=== PATIENT | female | born 1940 | race Caucasian/White ===

== ENCOUNTER 2018-02-11 14:13 | Inpatient (IN) | payer MEDICARE, OTHER ==
[~2018-02-11] VITALS: Ht 157.5 cm; Wt 95.8 kg
[~2018-02-11 14:13] MED LIST: ALLOPURINOL100 MG PO; AMIODARONE HCL200 MG PO; B12 5,000 MCG1 EACH PO; BENICAR40 MG PO; BUTALBITAL COM1 EACH PO; CLONIDINE HCL0.2 MG PO; EVISTA60 MG PO; FUROSEMIDE40 MG PO; GABAPENTIN100 MG; GLUCAGON EMERGEN1 MG IM; HUMALIN N SQ; HUMALOG PEN SQ; HUMALOG100 UNITS/ INJ; HYDRALAZINE HCL25 MG PO; LANTUS 3ML100 UNITS/ INJ; LANTUS 3ML100 UNITS/ SQ; LIPITOR20 MG PO; METOPROLOL SUCC25 MG PO; NORCO 5-325 TA1 EACH PO; OCUVITE TABLET1 EAC1 PO; POTASSIUM CHLO20 ME1 PO; PROMETHAZINE12.5 M1 PO; SODIUM BICARBO650 MG PO; SYNTHROID75 MCG PO; TORSEMIDE20 MG PO; TYLENOL ARTHRITIS PO; VICTOZA 2-0.6 MG/0.1 INJ; VITAMIN D33000 UNIT PO; VITAMIN D35000 UNIT PO; VITAMIN D400 UNI1 PO; VITAMIN K100 MCG PO; WARFARIN SODIU2.5 MG PO; WARFARIN SODIUM4 MG PO; ZYRTEC10 MG PO
[2018-02-11 16:05] VITALS: BP 166/96
[2018-02-11 16:44] VITALS: BP 166/96
[2018-02-11 16:52] LABS: BASOPHILS # (AUTO) 0.1 (0.0-0.1); BASOPHILS % 0.6 % (0.0-1.0); EOSINOPHILS # (AUTO) 0.1 (0.0-0.4); EOSINOPHILS % 0.9 % (0.0-6.0); HEMATOCRIT 31.1 % (34.2-44.1); HEMOGLOBIN 10.3 g/dL (12.0-16.0); LYMPHOCYTES % 15.7 % (18.0-39.1); MEAN CORPUSCULAR HEMOGLOBIN 30.7 pg (28-32); MEAN CORPUSCULAR HGB CONC 33.1 g/dL (31-35); MEAN CORPUSCULAR VOLUME 92.8 fL (81-99); MONOCYTES # (AUTO) 0.9 (0.2-0.8); MONOCYTES % 7.3 % (4.4-11.3); NEUTROPHILS # (AUTO) 8.6 (2.1-6.9); PLATELET COUNT 397 x10e3/uL (140-360); RED BLOOD COUNT 3.35 x10e6/uL (3.6-5.1)
[2018-02-11 17:04] LABS: INR 3.91
[2018-02-11] MEDS: HYDROCODONE/APAP 5MG-325MG TAB PO PRN (17:05)
[2018-02-11 17:13] LABS: ALBUMIN 2.5 g/dL (3.5-5.0); ALBUMIN/GLOBULIN RATIO 0.5 (0.8-2.0); ANION GAP 14.8 mmol/L (8-16); CALCIUM 10.1 mg/dL (8.4-10.2); CREATININE, SERUM 1.58 mg/dL (0.57-1.11); POTASSIUM 4.8 mmol/L (3.5-5.1)
[2018-02-11 18:19] LABS: HYPOCHROMASIA SLIGHT; LYMPHOCYTES % (MANUAL) 22 % (19-48); MONOCYTES % (MANUAL) 9 % (3.4-9.0); NEUTROPHILS % (MANUAL) 63 % (40-74); PLATELET ESTIMATE SLIGHTLY INCREASED; PLATELET MORPHOLOGY COMMENT FEW LARGE; RBC MORPHOLOGY COMMENT NORMAL
[2018-02-11] MEDS: SODIUM CHLORIDE 0.9% 1000ML 1,000 ML IV SCH (18:45)
[2018-02-11] MEDS: CEFTRIAXONE SOD 1 GM VIAL IV SCH (18:46)
[2018-02-11 20:00] VITALS: BP 162/69
[2018-02-11 20:55] VITALS: BP 162/69
[2018-02-12] VITALS (7 sets, daily range): BP systolic 155–177; BP diastolic 66–78
[2018-02-12] MEDS: LEVOTHYROXINE SODIUM 75 MCG TAB PO SCH (06:00)
[2018-02-12 06:08] LABS: BASOPHILS # (AUTO) 0.1 (0.0-0.1); BASOPHILS % 0.7 % (0.0-1.0); EOSINOPHILS # (AUTO) 0.1 (0.0-0.4); EOSINOPHILS % 1.2 % (0.0-6.0); HEMATOCRIT 30.2 % (34.2-44.1); HEMOGLOBIN 9.7 g/dL (12.0-16.0); LYMPHOCYTES # (AUTO) 2.1 (1.0-3.2); LYMPHOCYTES % 19.7 % (18.0-39.1); MEAN CORPUSCULAR HEMOGLOBIN 30.1 pg (28-32); MEAN CORPUSCULAR HGB CONC 32.1 g/dL (31-35); MEAN CORPUSCULAR VOLUME 93.8 fL (81-99); MONOCYTES # (AUTO) 0.8 (0.2-0.8); MONOCYTES % 7.7 % (4.4-11.3); NEUTROPHILS # (AUTO) 6.9 (2.1-6.9); NEUTROPHILS % 63.8 % (38.7-80.0); PLATELET COUNT 365 x10e3/uL (140-360); RED BLOOD COUNT 3.22 x10e6/uL (3.6-5.1); RED CELL DISTRIBUTION WIDTH 15.1 % (11.7-14.4)
[2018-02-12 06:24] LABS: CLARITY,URINE CLEAR (CLEAR); COLOR,URINE YELLOW (YELLOW); LEUKOCYTE ESTERASE ,URINE 1+ (NEGATIVE)
[2018-02-12 06:24] LABS: INR 4.16; PROTHROMBIN TIME 37.8 seconds (11.9-14.5)
[2018-02-12 06:25] LABS: BILIRUBIN,URINE NEGATIVE (NEGATIVE); KETONES,URINE NEGATIVE (NEGATIVE); NITRITE,URINE NEGATIVE (NEGATIVE); PROTEIN,URINE DIPSTICK 1+ (NEGATIVE); URINE UROBILINOGEN 0.2 mg/dL (0.2 - 1)
[2018-02-12 06:31] LABS: ANION GAP 12.7 mmol/L (8-16); CALCIUM 9.6 mg/dL (8.4-10.2); CREATININE, SERUM 1.49 mg/dL (0.57-1.11); POTASSIUM 4.7 mmol/L (3.5-5.1)
[2018-02-12 06:49] LABS: BACTERIA,URINE FEW /HPF; EPITHELIAL CELLS,URINE MANY /LPF; RBC,URINE 0-5 /HPF (0-5); TRANSITIONAL EPI CELLS,URINE MODERATE; WBC,URINE (MAN) >50 /HPF (0-5)
[2018-02-12] MEDS: INSULIN LISPRO 100 UNIT/1 ML 3ML VIAL SQ SCH ×3 (07:30→17:09)
[2018-02-12] MEDS ORDERED: ATORVASTATIN 20 MG TAB PO SCH (09:00)
[2018-02-12] MEDS: TORSEMIDE 10 MG TAB PO SCH ×2 (09:00→09:26)
[2018-02-12] MEDS: OLMESARTAN 20 MG TAB PO SCH (09:25)
[2018-02-12] MEDS: HYDRALAZINE HCL 25 MG TAB PO SCH ×2 (09:25→17:02)
[2018-02-12] MEDS: METOPROLOL TARTRATE 50 MG TAB PO SCH ×2 (09:26→17:02)
[2018-02-12] MEDS: ALLOPURINOL 100 MG TAB PO SCH (09:26)
[2018-02-12] MEDS: ISOSORBIDE MONONITRATE 30 MG TAB CR PO SCH ×2 (09:26→17:02)
[2018-02-12] MEDS: DULOXETINE HCL 30 MG DELAYED RELEASE PO SCH ×2 (09:26→17:02)
[2018-02-12] MEDS: POTASSIUM CHLORIDE 20 MEQ TAB CR PO SCH (09:27)
[2018-02-12] MEDS: CLINDAMYCIN 600MG/D5W 50ML 50 ML IV SCH ×2 (10:10→17:02)
[2018-02-12] MEDS: SODIUM CHLORIDE 0.9% 1000ML 1,000 ML IV SCH (12:31)
[2018-02-12] MEDS: RALOXIFENE HCL 60 MG TAB PO SCH (12:31)
[2018-02-12] MEDS: CEFTRIAXONE SOD 1 GM VIAL IV SCH (16:06)
[2018-02-12] MEDS: HYDROCODONE/APAP 5MG-325MG TAB PO PRN (16:06)
[2018-02-12] MEDS: INSULIN DETEMIR 100 UNIT/ML PEN SQ SCH ×2 (20:07→20:26)
[2018-02-13] VITALS (8 sets, daily range): BP systolic 137–194; BP diastolic 65–89
[2018-02-13] MEDS: CLINDAMYCIN 600MG/D5W 50ML 50 ML IV SCH ×3 (00:58→16:59)
[2018-02-13] MEDS: HYDROCODONE/APAP 5MG-325MG TAB PO PRN ×3 (00:59→20:39)
[2018-02-13 05:27] LABS: BASOPHILS # (AUTO) 0.1 (0.0-0.1); BASOPHILS % 0.9 % (0.0-1.0); EOSINOPHILS # (AUTO) 0.2 (0.0-0.4); EOSINOPHILS % 1.9 % (0.0-6.0); HEMATOCRIT 27.5 % (34.2-44.1); HEMOGLOBIN 8.9 g/dL (12.0-16.0); LYMPHOCYTES # (AUTO) 2.4 (1.0-3.2); LYMPHOCYTES % 27.1 % (18.0-39.1); MEAN CORPUSCULAR HEMOGLOBIN 30.6 pg (28-32); MEAN CORPUSCULAR HGB CONC 32.4 g/dL (31-35); MEAN CORPUSCULAR VOLUME 94.5 fL (81-99); MONOCYTES # (AUTO) 0.9 (0.2-0.8); MONOCYTES % 9.7 % (4.4-11.3); NEUTROPHILS # (AUTO) 4.7 (2.1-6.9); PLATELET COUNT 329 x10e3/uL (140-360); RED BLOOD COUNT 2.91 x10e6/uL (3.6-5.1); RED CELL DISTRIBUTION WIDTH 15.2 % (11.7-14.4)
[2018-02-13] MEDS: LEVOTHYROXINE SODIUM 75 MCG TAB PO SCH (05:27)
[2018-02-13 05:53] LABS: ANION GAP 12.6 mmol/L (8-16); CALCIUM 9.4 mg/dL (8.4-10.2); CREATININE, SERUM 1.35 mg/dL (0.57-1.11); POTASSIUM 4.6 mmol/L (3.5-5.1)
[2018-02-13] MEDS: INSULIN LISPRO 100 UNIT/1 ML 3ML VIAL SQ SCH ×3 (07:30→16:22)
[2018-02-13 07:49] LABS: ANISOCYTOSIS SLIGHT; BAND NEUTROPHILS % (MANUAL) 1 %; EOSINOPHILS % (MANUAL) 1 % (0-7); HYPOCHROMASIA SLIGHT; LYMPHOCYTES % (MANUAL) 29 % (19-48); METAMYELOCYTES % (MANUAL) 1 % (0-0); MONOCYTES % (MANUAL) 7 % (3.4-9.0); MYELOCYTES % (MANUAL) 2 % (0-0); NEUTROPHILS % (MANUAL) 55 % (40-74); RBC MORPHOLOGY COMMENT NORMAL
[2018-02-13 07:50] LABS: PLATELET ESTIMATE ADEQUATE; PLATELET MORPHOLOGY COMMENT NORMAL
[2018-02-13] MEDS: HYDRALAZINE HCL 25 MG TAB PO SCH ×2 (08:40→17:00)
[2018-02-13] MEDS: SODIUM CHLORIDE 0.9% 1000ML 1,000 ML IV SCH (08:40)
[2018-02-13] MEDS: ALLOPURINOL 100 MG TAB PO SCH (08:41)
[2018-02-13] MEDS: METOPROLOL TARTRATE 50 MG TAB PO SCH ×2 (08:41→17:00)
[2018-02-13] MEDS: ISOSORBIDE MONONITRATE 30 MG TAB CR PO SCH ×2 (08:41→17:00)
[2018-02-13] MEDS: OLMESARTAN 20 MG TAB PO SCH (08:41)
[2018-02-13] MEDS: TORSEMIDE 10 MG TAB PO SCH (08:41)
[2018-02-13] MEDS: DULOXETINE HCL 30 MG DELAYED RELEASE PO SCH ×2 (08:41→17:00)
[2018-02-13] MEDS: RALOXIFENE HCL 60 MG TAB PO SCH (08:41)
[2018-02-13] MEDS: POTASSIUM CHLORIDE 20 MEQ TAB CR PO SCH (08:42)
[2018-02-13] MEDS ORDERED: SODIUM CHLORIDE FLUSH 10 ML SYR INJ PRN (10:00)
[2018-02-13] MEDS: CEFTRIAXONE SOD 1 GM VIAL IV SCH (16:20)
[2018-02-13] MEDS: INSULIN DETEMIR 100 UNIT/ML PEN SQ SCH (20:31)
[2018-02-13] MEDS ORDERED: ATORVASTATIN 20 MG TAB PO SCH (21:00)
[2018-02-14] MEDS: CLINDAMYCIN 600MG/D5W 50ML 50 ML IV SCH ×2 (01:10→08:22)
[2018-02-14 04:15] VITALS: BP 186/79
[2018-02-14 05:00] LABS: INR 2.68; PROTHROMBIN TIME 26.8 seconds (11.9-14.5)
[2018-02-14] MEDS: LEVOTHYROXINE SODIUM 75 MCG TAB PO SCH (05:14)
[2018-02-14] MEDS: INSULIN LISPRO 100 UNIT/1 ML 3ML VIAL SQ SCH ×2 (07:30→12:54)
[2018-02-14 07:53] VITALS: BP 183/79
[2018-02-14 08:00] VITALS: BP 183/79
[2018-02-14] MEDS: DULOXETINE HCL 30 MG DELAYED RELEASE PO SCH (08:23)
[2018-02-14] MEDS: ISOSORBIDE MONONITRATE 30 MG TAB CR PO SCH (08:23)
[2018-02-14] MEDS: RALOXIFENE HCL 60 MG TAB PO SCH (08:23)
[2018-02-14] MEDS: HYDRALAZINE HCL 25 MG TAB PO SCH (08:23)
[2018-02-14] MEDS: OLMESARTAN 20 MG TAB PO SCH (08:23)
[2018-02-14] MEDS: TORSEMIDE 10 MG TAB PO SCH (08:24)
[2018-02-14] MEDS: HYDROCODONE/APAP 5MG-325MG TAB PO PRN (08:25)
[2018-02-14] MEDS: METOPROLOL TARTRATE 50 MG TAB PO SCH (08:25)
[2018-02-14] MEDS: ALLOPURINOL 100 MG TAB PO SCH (08:25)
[2018-02-14] MEDS: POTASSIUM CHLORIDE 20 MEQ TAB CR PO SCH (08:25)
[2018-02-14 11:57] VITALS: BP 152/72
[2018-02-14] MEDS ORDERED: HYDRALAZINE HCL25 MG PO (15:11)
[2018-02-14] MEDS ORDERED: Isosorbide Mononitrate PO (15:11)
[2018-02-14] MEDS ORDERED: BENICAR40 MG PO (15:11)
[2018-02-14] MEDS ORDERED: CYMBALTA30 MG PO (15:11)
[2018-02-14] MEDS ORDERED: METOPROLOL SUCC25 MG PO (15:11)
[2018-02-14] MEDS ORDERED: CLINDAMYCIN HC150 MG PO (15:11)
[2018-02-14] MEDS ORDERED: AMOXICILLIN500 MG PO (15:11)
[2018-02-14 16:28] VITALS: BP 177/84
== END 2018-02-14 16:28 | disposition home or self-care (01) | DRG 603 ==
LOC: MED/SURG2 15:14
PROVIDERS: ADMIT Internal Medicine; ATTEND Internal Medicine
CPT/HCPCS: 36415; 80048; 80053; 81001; 82948; 84550; 85025; 85610; 87040; 87086; 87186; 93971; 96360; J0696; J7030